=== PATIENT | male | born 1965 | race Caucasian/White ===

== ENCOUNTER 2018-04-11 07:55 | Emergency (ER) ==
[2018-04-11 08:08] VITALS: BP 155/102; TEMP 97; BMI 59.7
--- NOTE | 2018-04-11 08:26 | ED.PDOC ---
General ED Provider: Dr. NATHAN LONDONO Chief Complaint: Foot Pain/Injury Stated Complaint: Rt Foot swollen and painful; Ulcer Medial aspect MTP joint region. Rt Calf pain. Rt Lower extremity swelling. 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 he needed to have his foot checked out to make sure he could drive his truck back to his home in [place] Time Seen by Physician: 08:10 Mode of Arrival: Walk-In Information Source: Patient Exam Limitations: No limitations Nursing and Triage Documentation Reviewed and Agree: Yes Does patient meet sepsis criteria?: No System Inflammatory Response Syndrome: Not Applicable Sepsis Protocol: For patient's 13 years and over: Temp is 96.8 and below OR 101 and greater Pulse >90 BPM Resp >20/minute Acutely Altered Mental Status Are patient's symptoms suggestive of a new infection, such as: -Pneumonia -Skin, Soft Tissue -Endocarditis -UTI -Bone, Joint Infection -Implantable Device -Acute Abdominal Infection -Wound Infection -Meningitis -Blood Stream Catheter Infection -Unknown Musculoskeletal Complaint Exam - Ankle/Foot Complaint/Exam Location of Injury: Reports: Right, Foot, Toe #1 Mechanism of Injury: Reports: No known trauma, Other (suspected area medial Great toe due to pressure of shoe against distal foot at great toe. State just obtained new shoes few weeks ago) Onset/Duration: 2 weeks Onset of Pain: Reports: Weeks (2) Initial Severity: Mild Current Severity: Moderate Location: Reports: Discrete Character: Reports: Throbbing, Burning Alleviating: Reports: None Aggravating: Reports: Movement, Weight bearing Able to Bear Weight: Yes Associated Signs and Symptoms: Reports: Swelling, Redness Gout Risk Factors: Reports: None Lower Extremity Findings: Present: Swelling, Erythema, Warmth, Blisters, Tenderness (CALF pain ) Achilles Tendon Abnormality: No Limited Range of Motion: Absent: Inversion, Eversion, Dorsiflexion, Plantarflexion Differential Diagnosis: Cellulitis, Infection Review of Systems - Review Of Systems Constitutional: Reports: No symptoms Eyes: Reports: No symptoms Ears, Nose, Mouth, Throat: Reports: No symptoms Respiratory: Reports: No symptoms Cardiac: Reports: No symptoms GI: Reports: No symptoms : Reports: No symptoms Musculoskeletal: Reports: Joint pain Skin: Reports: No symptoms, Other (ulcer rt foot) Neurological: Reports: No symptoms Endocrine: Reports: No symptoms Hematologic/Lymphatic: Reports: No symptoms All Other Systems: Reviewed and Negative Past Medical History - Past Medical History Previously Healthy: No Endocrine: Reports: DM 2 Cardiovascular: Reports: None, Hypertension, Other (peripheral vascular disease) Respiratory: Reports: None Hematological: Reports: None Gastrointestinal: Reports: None Genitourinary: Reports: None Neuro/Psych: Reports: None Musculoskeletal: Reports: None Cancer: Reports: None - Surgical History General Surgical History: Reports: Other (RT Foot ) - Family History Family History: Reports: None - Social History Smoking Status: Never smoker Hx Substance Use: No Alcohol Screening: Occasionally Physical Exam - Physical Exam Appearance: Ill-appearing, Obese Ill-appearing: Mild Pain Distress: Mild Eyes: WHITNEY, EOMI, Conjunctiva clear ENT: Ears normal, Nose normal, Oropharynx normal Respiratory: Airway patent, Breath sounds clear, Breath sounds equal, Respirations nonlabored Cardiovascular: RRR, Pulses normal, No rub, No murmur GI/: Soft, Nontender, No masses, Bowel sounds normal, No Organomegaly Musculoskeletal: Edema Skin: Warm, Dry, Normal color Neurological: Motor intact, Cranial nerves intact, Alert, Oriented Interpretation - Radiology Interpretation Radiology Interpretation By: Radiologist Exam Interpreted: Other (US RT LE-Neg for DVT;FOOT NO RX-Can not R/o osteomyelitis) Critical Care Note - Critical Care Note Total Time (mins): 60 Course - Course Hematology/Chemistry: 04/11/18 09:24 04/11/18 09:24 Orders, Labs, Meds: Lab Review 04/11/18 04/11/18 04/11/18 08:44 09:24 09:24 WBC 7.02 RBC 4.02 L Hgb 11.7 L Hct 34.5 L MCV 85.8 MCH 29.1 MCHC 33.9 RDW Coeff of Fadi 13.0 Plt Count 274 Immature Gran % (Auto) 0.6 Neut % (Auto) 71.5 Lymph % (Auto) 16.1 [place] % (Auto) 8.1 Eos % (Auto) 3.4 Baso % (Auto) 0.3 Immature Gran # (Auto) 0.0 Neut # (Auto) 5.0 Lymph # (Auto) 1.1 [place] # (Auto) 0.6 Eos # (Auto) 0.2 Baso # (Auto) 0.0 ESR 87 H Sodium 137 Potassium 4.0 Chloride 104 Carbon Dioxide 25 Anion Gap 12.0 BUN 12 Creatinine 0.79 Estimated GFR (MDRD) 103.00 BUN/Creatinine Ratio 15.18 Glucose 200 H Calcium 8.7 Total Bilirubin 0.7 AST 15 ALT 11 L Alkaline Phosphatase 51 Total Protein 6.5 Albumin 2.4 L Globulin 4.1 Albumin/Globulin Ratio 0.59 Orders Category Date Time Status CBC W/ AUTO DIFF Stat LAB 04/11/18 09:24 Completed CMP [COMPREHENSIVE METABOLIC PANEL] Stat LAB 04/11/18 09:24 Completed CULTURE WOUND [WOUND CULTURE] Stat LAB 04/11/18 08:40 Received ESR Stat LAB 04/11/18 08:44 Completed Lisinopril [Zestril] MEDS 04/11/18 10:40 Discontinued 10 mg PO ONCE STA Sulfamethoxazole/Trimethoprim [Bactrim Ds 800/160 mg] MEDS 04/11/18 10:49 Discontinued 1 tab PO ONCE STA FOOT, RIGHT 3 VIEWS Stat RADS 04/11/18 09:16 Completed ULTRASOUND VENOUS SCAN RT. LEG [U/S VENOUS SCAN RT. LEG RADS 04/11/18 08:43 Completed ] Stat Medications Discontinued Medications Generic Name Dose Route Start Last Admin Trade Name Freq PRN Reason Stop Dose Admin Lisinopril 10 mg 04/11/18 10:40 04/11/18 10:45 Zestril PO 04/11/18 10:41 10 mg ONCE STA Administration Trimethoprim/Sulfamethoxazole 1 tab 04/11/18 10:49 04/11/18 10:56 Bactrim Ds 800/160 Mg PO 04/11/18 10:50 1 tab ONCE STA Administration Vital Signs: Temp Pulse Resp BP Pulse Ox 04/11/18 08:03 97.0 F L 92 H 20 155/102 H 96 Departure - Departure Time of Disposition: 10:30 Disposition: HOME SELF-CARE Discharge Problem: Foot ulcer, Peripheral vascular insufficiency, Diabetes mellitus, type II, Hypertension Instructions: Foot Care for People with Diabetes (ED), Diabetic Foot Ulcers (ED ), Hypertension (ED) Condition: Fair Pt referred to PMD for follow-up: Yes (Tomorrow) IPMP verified?: No Additional Instructions: Take Antibiotics as directed Seed care at PCP office Explained results of Foot xray and sent copy Needs to arrange for outpaitient Nuclear Bone scan to r/o osteomyelitis When out of truck Keep off Feet and keep legs elevated Take all meds as directed/ Lisinopril administered here-Continue one daily at home /renal benefit as well due to diabetes Follow up with PCP Prescriptions: Sulfamethoxazole/Trimethoprim [Bactrim Ds 800/160 mg] 1 tab PO Q12HR #20 tablet Lisinopril 10 mg PO DAILY #10 tablet Allergies/Adverse Reactions: Allergies No Known Allergies Allergy (Unverified 04/11/18 07:59) Home Medications: Ambulatory Orders Furosemide [Lasix] 80 mg PO DAILY 04/11/18 Glyburide 5 mg PO BID 04/11/18 Lisinopril 10 mg PO DAILY #10 tablet 04/11/18 Metformin HCl 1,000 mg PO BID 04/11/18 Potassium Chloride [K-Dur] 20 meq PO ONCE 04/11/18 Sulfamethoxazole/Trimethoprim [Bactrim Ds 800/160 mg] 1 tab PO Q12HR #20 tablet 04/11/18 Disposition Discussed With: Patient
--- NOTE | 2018-04-11 09:32 | US ---
EXAM: Right lower extremity venous doppler. HISTORY: Right leg pain and swelling. COMPARISON: None available. TECHNIQUE: A duplex Doppler study was performed consisting of integrated two dimensional (2D) real-t lexa imaging color flow Doppler and Doppler spectral analysis utilizing linear array probes. FINDINGS: There is normal flow, venous waveforms, compressibility and augmentation of flow within th e right common femoral, greater saphenous, profunda, femoral, popliteal, posterior tibial, anterior t ibial and peroneal veins. Subcutaneous edema noted in the calf. IMPRESSION: No evidence for right lower extremity deep vein thrombosis at the levels examined.
--- NOTE | 2018-04-11 09:56 | DI ---
EXAM: RIGHT FOOT, 3 VIEWS HISTORY: Pain first metacarpal phalangeal joint FINDINGS: No comparison. Bones are diffusely demineralized. Stabilization hardware of the first tar sometatarsal joint with multiple units present. A few screws are seen superimposed over the mid seco nd metatarsal bone with regional deformity suggesting healed fracture. Essential dislocation of the first and second proximal phalanges laterally with severe arthropathy of the joints. There is severe arthropathy of the third through fifth metatarsophalangeal joints with angulation although no defini te dislocation. Arthropathy and deformity of the mid foot is severe. No acute fracture line is seen . Areas of osteomyelitis in this complex setting cannot be excluded radiographically. There is sign ificant soft tissue swelling of the dorsum of the foot and generalized edema at the level of the ankl e. IMPRESSION: Findings suggesting severe neuropathic arthropathy. Areas of osteomyelitis in this complex setting c annot be excluded radiographically.
[2018-04-11] MEDS ORDERED: ZESTRIL PO STA (10:40)
[2018-04-11] MEDS ORDERED: BACTRIM DS 800/160 MG PO STA (10:49)
== END 2018-04-11 11:09 | disposition home or self-care (01) ==
LOC: ED 07:55
DX: L97.519 Non-pressure chronic ulcer of other part of right foot with unspecified severity (principal); E11.9 Type 2 diabetes mellitus without complications; I73.9 Peripheral vascular disease, unspecified; M79.604 Pain in right leg; M79.89 Other specified soft tissue disorders; I10 Essential (primary) hypertension; Z79.899 Other long term (current) drug therapy
CPT/HCPCS: 36415; 80053; 85025; 85651; 87070; 87186; 99283